=== PATIENT | female | born 1965 | race Two or more races ===

== ENCOUNTER 2016-07-14 10:03 | Observation (INO) | payer OTHER ==
[2016-07-14 10:44] LABS: ABSOLUTE NEUTROPHIL COUNT 4.8 K/mm3 (1.8-7.7); BASO % 0.5 % (0.2-1.0); EOS # 0.3 (0.0-0.5); EOS % 3.4 % (0.9-2.9); HEMATOCRIT 38.1 % (37.0-47.0); HEMOGLOBIN 12.5 gm/l (12.0-16.0); IMM NEUT% 0.2 % (0-1); LYMPH % 34.1 % (15-45); MEAN CELL VOLUME 89.4 fl (81.0-99.0); MEAN CORPUSCULAR HEMOGLOBIN 29.3 pg (27.0-31.0); MEAN CORPUSCULAR HGB CONC 32.8 g/dl (33.0-37.0); MEAN PLATELET VOLUME 11.2 fl (7.4-10.4); MONO # 0.6 (0.0-0.8); MONO % 6.7 % (4-12); NEUT % 55.1 % (43-75); PLATELET COUNT 248 K/mm3 (130-400); RED CELL DISTRIBUTION WIDTH 11.9 % (11.5-14.5)
[2016-07-14 11:09] LABS: ALB/GLOB RATIO 1.2 (>1.0); ALBUMIN 3.9 gm/dL (3.5-5.7); CALCIUM 9.2 mg/dL (8.6-10.3); MAGNESIUM 1.4 mg/dL (1.9-2.7); TROPONIN I < 0.01 ng/ml (0.0-0.06)
[2016-07-14 11:12] LABS: CKMB ISOENZYME 3.7 ng/ml (0.6-6.3)
[2016-07-14] MEDS ORDERED: MAGNESIUM SULFATE 1 G/100 ML 200 ML IV ONE (11:30)
--- NOTE | 2016-07-14 12:09 | RAD ---
CHEST 2 VIEWS HISTORY: Chest and arm pain. Frontal and lateral chest radiographs dated 07/14/2016. COMPARISON: 12/04/2015 FINDINGS: FOCAL AIRSPACE OPACITY: No gross airspace consolidation. PLEURAL EFFUSION: None. CARDIOMEDIASTINAL SILHOUETTE: Nonenlarged. PNEUMOTHORAX: None identified. OSSEOUS STRUCTURES: Minor mid thoracic disc degeneration. UPPER ABDOMEN: Status post cholecystectomy. IMPRESSION: No acute cardiopulmonary process noted. Postcholecystectomy change.
[2016-07-14] MEDS ORDERED: NITROGLYCERIN OINT 1 G (DOSE) ONE (13:11)
[2016-07-14] MEDS ORDERED: ACETAMINOPHEN 500 MG TABLET ONE (13:11)
[2016-07-14] MEDS ORDERED: REGADENOSON 0.1 MG DOSE IV ONE (13:34)
[2016-07-14 14:41] VITALS: BMI 37.3
[2016-07-14] MEDS ORDERED: SODIUM CHLORIDE 0.9% 100 ML IV PRN (14:42)
[2016-07-14] MEDS ORDERED: BISACODYL 10 MG SUP PR PRN (14:42)
[2016-07-14] MEDS ORDERED: MAGNESIUM HYDROXIDE 30 ML UDCUP PO PRN (14:42)
[2016-07-14] MEDS ORDERED: MENTHOL/CETYLPYRD 1 EACH LOZENGE PO PRN (14:42)
[2016-07-14] MEDS ORDERED: BLISTEX LIPSTICK 1 EACH TP PRN (14:42)
[2016-07-14] MEDS ORDERED: BISACODYL 5 MG TABLET.EC PO PRN (14:42)
[2016-07-14] MEDS ORDERED: GLIPIZIDE 5 MG TABLET PO ONE (15:00)
--- NOTE | 2016-07-14 16:47 | HP ---
SHAILA CULLEN [id number] DATE OF : 1965 DATE OF ADMISSION: 07/14/2016 IDENTIFICATION: Ms. Guajardo is a 51-year-old followed at [facility]. CHIEF COMPLAINT: Chest pain. HISTORY OF PRESENT ILLNESS: Ms. Guajardo reports various symptoms starting last night with a heaviness and pain in the left arm. She had central chest pain that woke her up at 10 p.m. There has been associated nausea, and diaphoresis. The symptoms have come and gone a little bit. She was able to sleep, but this morning she felt poorly and did not feel that she could go to work. The chest pain, returned and she came to [facility] Emergency Room. In the emergency department, she was treated with sublingual nitroglycerine, and her pain resolved. She then had Nitro paste placed and was referred to the Hospitalist service. She does have a prior episode of chest pain in 2012. At that time, she was found to be in paroxysmal atrial fibrillation and cardiac workup was otherwise negative with a normal myocardial perfusion study, a normal echocardiogram, and subsequently a normal Holter monitor. She does however have cardiac risk factors or diabetes, hypertension, and dyslipidemia and family history. REVIEW OF SYSTEMS: HEENT: No specific complaints. Respiratory: She had dyspnea with chest pain, no cough. Cardiac: Chest pain, and palpitations. Gastrointestinal: Nausea. No current vomiting, although she has recently had vomiting after eating rice. She has some intermittent left sided abdominal pain. Genitourinary: Complains of rash in her groin which is itchy. Musculoskeletal: Multiple sites of arthritis. PAST MEDICAL HISTORY: 1. Diabetes mellitus type 2 for at least 17 years. 2. Hypertension also for at least 17 years. 3. Dyslipidemia. 4. Paroxysmal atrial fibrillation, not current in atrial fibrillation. 5. Obesity with body mass index of 37.3. 6. Osteoarthritis. PAST SURGICAL HISTORY: 1. Cholecystectomy. 2. Appendectomy. 3. Left knee surgery for meniscus injury, I assume that was arthroscopic. ALLERGIES: NONE KNOWN. MEDICATIONS: 1. Glipizide 5 mg by mouth twice a day. 2. Insulin glargine 30 units subcutaneous at bedtime. 3. Metformin 1000 mg by mouth twice a day. 4. Lisinopril 20 mg by mouth daily. 5. Rivaroxaban 20 mg by mouth daily at 1800 because of paroxysmal atrial fibrillation. HABITS: No current, or past tobacco, alcohol or drugs. SOCIAL HISTORY: She lives with her in [place]. She works in a [employer] plant. FAMILY HISTORY: Both parents of cancer probably secondary to heavy smoking. However, she had a sister who at a young age of heart disease. PHYSICAL EXAMINATION: GENERAL: This is an obese , anxious, but no acute distress. VITAL SIGNS: Temperature is 97.9 degrees Fahrenheit. Pulse is 75. Blood pressure is elevated at 171/74. Respiratory rate is 16. Oxygen saturation is 99% on room air. HEENT: Pupils equal, round, and reactive. Extraocular muscles intact. Oropharynx is moist. Dentition in good condition. NECK: Plethoric, no jugular venous distention, or bruits notable. CHEST: Clear to auscultation. HEART: Regular, no murmur appreciated. ABDOMEN: Obese, and soft. Mild tenderness on the left flank, no guarding, or rebound. Normal bowel tones. No organomegaly. EXTREMITIES: Good dorsalis pedis pulses. Trace edema in the ankles bilaterally. No clubbing. NEUROLOGIC: Alert, and oriented, no focal deficits. LABORATORY DATA: CBC is essentially normal. Chemistry: Sodium is 133, potassium 3.9, chloride 99, CO2 of 24, BUN 18, creatinine 0.8, and glucose 367. Magnesium is low at 1.4. Liver enzymes are normal. CKP is 67. MB fraction is 3.7. Troponin I less than 0.01. DIAGNOSTIC IMAGIN. Chest x-ray. No acute cardiopulmonary process. 2. Electrocardiogram. Sinus rhythm with inverted T-wave in V1. This was really unchanged from previous in November 2015, and November 2012. ASSESSMENT: Ms. Bennett Lambert is a 51-year-old with diabetes, hypertension, dyslipidemia, obesity, and family history of heart disease who presents with intermittent left chest pain, and left arm pain. PLAN: 1. Refer to observation on [facility] with telemetry monitoring. 2. Repeat troponin at 6 hour intervals and anticipate Lexiscan myocardial perfusion study in the morning. Continue nitroglycerin paste, and add daily aspirin. 3. We will replace her lisinopril with metoprolol. 4. Hold metformin, but continue other outpatient medications. Check blood sugar before meals and at bedtime, and cover with insulin as indicated. 5. Fasting lipid panel in the morning. 6. FULL CODE STATUS. 7. Regarding venous thromboembolism risk, she is low risk and also anticoagulated on rivaroxaban. She does not require any additional prophylaxis. MICHAEL/yvrose cc: [facility]
[2016-07-14] MEDS ORDERED: RIVAROXABAN 10 MG TABLET PO SCH (18:00)
[2016-07-14] MEDS: INSULIN ASPART (DOSE) 100 UNITS/1 ML SUB-Q PRN (18:07)
[2016-07-14] MEDS: NITROGLYCERIN OINT 1 G (DOSE) TP SCH (19:05)
[2016-07-14] MEDS: ACETAMINOPHEN 325 MG TABLET PO PRN (20:15)
[2016-07-14] MEDS: DOCUSATE SODIUM 100 MG CAPSULE PO SCH (20:15)
[2016-07-14] MEDS: METOPROLOL TARTRATE 25 MG TABLET PO SCH (20:20)
[2016-07-14] MEDS ORDERED: INSULIN GLARGINE (DOSE) 100 UNITS/ML UNIT SUB-Q SCH (21:00)
[2016-07-15] MEDS: CLOTRIMAZOLE 1% 15 APPLIC/15 G CREAM TP SCH ×2 (00:20→10:53)
[2016-07-15] MEDS: NITROGLYCERIN OINT 1 G (DOSE) TP SCH ×3 (02:01→12:41)
[2016-07-15] MEDS: ACETAMINOPHEN 325 MG TABLET PO PRN (04:26)
[2016-07-15 06:05] LABS: CALCIUM 9.6 mg/dL (8.6-10.3); CHOLESTEROL RISK RATIO 4.8 (3.7-5.6); MAGNESIUM 1.5 mg/dL (1.9-2.7)
[2016-07-15] MEDS: GLIPIZIDE 5 MG TABLET PO SCH ×2 (06:33→07:42)
[2016-07-15] MEDS: INSULIN ASPART (DOSE) 100 UNITS/1 ML SUB-Q PRN (07:41)
[2016-07-15] MEDS ORDERED: MAGNESIUM SULFATE 2 G/50 ML 2 G in Premix (Water) 50 ml 1 EACH IV ONE (08:00)
[2016-07-15] MEDS ORDERED: PUMP TUBING ONE (08:10)
[2016-07-15] MEDS ORDERED: ASPIRIN (ENTERIC COATED) 325 MG TABLET.EC PO SCH (09:00)
[2016-07-15] MEDS ORDERED: PNEUMOCOCCAL 23-VAL P-SAC VAC 0.5 ML VIAL IM V ONE (09:00)
[2016-07-15] MEDS: METOPROLOL TARTRATE 25 MG TABLET PO SCH (10:53)
[2016-07-15] MEDS: DOCUSATE SODIUM 100 MG CAPSULE PO SCH (10:53)
--- NOTE | 2016-07-15 11:13 | NUC MED ---
Exam: Nuclear medicine myocardial SPECT, ejection fraction and wall motion Comparison: None Indication: Diabetes and chest pain. Technique: 11.5 mCi of technetium 99m sestamibi were administered for the rest portion of the exam and SPECT imaging was obtained per protocol. Stress was achieved via the administration of 0.4 mg of LexiScan. At maximum stress, 36.1 mCi of technetium 99m sestamibi were administered and SPECT imaging was obtained per protocol. Findings: Ejection fraction is calculated at 61%. There is relative hypokinesia of the inferior wall however there is significant gut uptake on the stress imaging which is likely producing this artifact as wall does appear to thicken. Wall motion is otherwise normal.. Myocardial perfusion is normal during both stress and rest. Impression: 1. No evidence of significant stress-induced ischemia or infarct. 2. Ejection fraction 61%. 3. Relative hypokinesia of the inferior wall is probably artifact. Wall motion is otherwise unremarkable. Findings discussed with Dr. Arthur 1110 hours 07/15/2016.
[2016-07-15 12:26] VITALS: BP 141/88
--- NOTE | 2016-07-15 17:32 | DS ---
SHAILA CULLEN [id number] DATE OF ADMISSION: July 14, 2016 DATE OF DISCHARGE: July 15, 2016 DISCHARGE DIAGNOSES: Atypical chest pain favor noncardiogenic causes such as gastroesophageal reflux. OTHER DIAGNOSES: Include: 1. Hypomagnesemia. 2. Chronic essential hypertension. 3. Adult onset diabetes. 4. History of paroxysmal atrial fibrillation. 5. Hypercholesterolemia. 6. Obesity. SUMMARY OF ADMISSION AND HOSPITAL COURSE: The patient is 51-year-old female who presented with complaints of substernal chest pain symptoms occurring at night lasting off and on for the past week. Workup in the emergency department showed normal electrocardiogram. She was in sinus rhythm. Cardiac enzymes were negative, but given her risk factors she was referred to the hospitalist service for observation. Serial cardiac enzymes remained negative. On telemetry she had no arrhythmias. She underwent a Lexiscan myocardial perfusion study showing normal wall motion, normal myocardial perfusion, and a normal ejection fraction. She was felt to be medically stable for discharge. PHYSICAL EXAM: VITAL SIGNS: Her discharge vital signs showed a temperature of 97.5, pulse 84, blood pressure is 141/88, respirations 18, oxygen saturation 96% on room air. Body mass index 37.3, weight is 92.6 kilograms. GENERAL: This is an obese female in no acute distress. HEENT: Is unremarkable. LUNGS: Are clear to auscultation bilaterally. CARDIOVASCULAR: Exam reveals a regular rate and rhythm without a murmur. ABDOMEN: Is soft, nontender, nondistended with positive bowel sounds. EXTREMITIES: Show no peripheral edema. LABORATORY STUDIES: On the day of discharge showed a total cholesterol of 192, LDL cholesterol of 90. Creatinine of 0.8, normal electrolytes. Glucose 246, magnesium 1.5. Cardiac enzymes were negative. DISPOSITION: Home. DISCHARGE CONDITION: Good. DISCHARGE MEDICATIONS: Include: 1. Glucotrol 5 mg twice a day with meals. 2. Lantus insulin 30 units subcutaneous at bedtime. 3. Lisinopril 20 mg orally daily. 4. Glucophage 1000 mg twice a day with meals. 5. Xarelto 20 mg daily. 6. Prilosec 20 mg daily. I recommend she take the Prilosec consistently for two weeks and then as needed to see if relieves her symptoms. DISCHARGE FOLLOWUP: She should follow up with her primary care provider on July 18, 2016 at 8:45 a.m. and her appointment was made with Marcelo Maravilla PA-C with [facility]. Cc: [facility]
== END 2016-07-15 14:30 | disposition home or self-care (01) ==
LOC: ED 10:03 → MS 13:33
PROVIDERS: ADMIT Family Medicine; ATTEND Family Medicine
DX: R07.89 Other chest pain (principal); E11.9 Type 2 diabetes mellitus without complications; I10 Essential (primary) hypertension; E78.5 Hyperlipidemia, unspecified; I48.0 Paroxysmal atrial fibrillation; E66.9 Obesity, unspecified; Z68.37 Body mass index [BMI] 37.0-37.9, adult; M19.90 Unspecified osteoarthritis, unspecified site; Z79.84 Long term (current) use of oral hypoglycemic drugs; E83.42 Hypomagnesemia; E78.00 Pure hypercholesterolemia, unspecified; Z23 Encounter for immunization
CPT/HCPCS: 90732; 85025; 82550; 82553; 80048; 80053; 80061; 83735 ×2; 84484 ×3; 36415 ×2; 71020; 78452; 99285 ×2; 96365; 96366; 93017; 93005; A9270 ×17; J3475 ×2; J7050; J2785; J1815 ×3; A9500